=== PATIENT | male | born 1955 | race Caucasian/White ===

== ENCOUNTER → 2019-09-24 | Outpatient (REF) | payer OTHER ==
[~2019-09-24] MED LIST: ASAC800T3 PO; CELE40TA PO; IMOD2TAB16 PO; MESA50SU PR; MULT1TAB10 PO
[2019-09-24 11:43] LABS: HEMATOCRIT 44.4 % (42.0-52.0); HEMOGLOBIN 15.2 g/dl (13.5-17.5); MEAN CORPUSCULAR HGB CONC 34.2 g/dl (32.0-36.5); MEAN CORPUSCULAR VOLUME 93.5 fl (80.0-96.0); PLATELET COUNT, AUTOMATED 190 10^3/uL (150-450); RED BLOOD COUNT 4.75 10^6/uL (4.30-6.10); WHITE BLOOD COUNT 5.3 10^3/uL (4.0-10.0)
[2019-09-24 11:53] LABS: ALBUMIN 3.8 GM/DL (3.2-5.2); ALT/SGPT 39 U/L (12-78); BILIRUBIN,TOTAL 0.7 MG/DL (0.2-1.0); BLOOD UREA NITROGEN 19 MG/DL (7-18); CARBON DIOXIDE LEVEL 28 MEQ/L (21-32); CHLORIDE LEVEL 105 MEQ/L (98-107); CHOLESTEROL LEVEL 197 MG/DL (<200); CHOLESTEROL RISK RATIO 3.862 (<5); CREATININE FOR GFR 0.99 MG/DL (0.70-1.30); GLOMERULAR FILTRATION RATE > 60.0 (>49); GLUCOSE, FASTING 101 MG/DL (70-100); HDL CHOLESTEROL 51 MG/DL (>40); LDL CHOLESTEROL 133 MG/DL (<100); NON-HDL-C 146 MG/DL; POTASSIUM SERUM 4.3 MEQ/L (3.5-5.1); SODIUM LEVEL 139 MEQ/L (136-145); TOTAL PROTEIN 7.3 GM/DL (6.4-8.2); TRIGLYCERIDES LEVEL 67 MG/DL (<150)
[2019-09-24 11:57] LABS: TOTAL 25(OH) VITAMIN D 43.2 NG/ML (30.0-100.0)
== END ==
LOC: M SFHCPLAZ 09:43
PROVIDERS: ATTEND Nurse Practitioner Adult Health
DX: Z00.00 Encounter for general adult medical examination without abnormal findings (principal); Z12.5 Encounter for screening for malignant neoplasm of prostate; Z13.220 Encounter for screening for lipoid disorders; E55.9 Vitamin D deficiency, unspecified
CPT/HCPCS: 36415; 80053; 80061; 82306; 85027; G0103

== ENCOUNTER → 2020-09-24 | Outpatient (REF) | payer OTHER ==
[2020-09-24 10:24] LABS: HEMATOCRIT 46.1 % (42.0-52.0); HEMOGLOBIN 15.3 g/dl (13.5-17.5); MEAN CORPUSCULAR HEMOGLOBIN 31.1 pg (27.0-33.0); MEAN CORPUSCULAR HGB CONC 33.2 g/dl (32.0-36.5); MEAN CORPUSCULAR VOLUME 93.7 fl (80.0-96.0); PLATELET COUNT, AUTOMATED 173 10^3/uL (150-450); RED BLOOD COUNT 4.92 10^6/uL (4.30-6.10)
[2020-09-24 11:03] LABS: ALT/SGPT 44 U/L (12-78); BILIRUBIN,TOTAL 0.6 MG/DL (0.2-1.0); BLOOD UREA NITROGEN 21 MG/DL (7-18); CALCIUM LEVEL 9.4 MG/DL (8.8-10.2); CARBON DIOXIDE LEVEL 30 MEQ/L (21-32); CHLORIDE LEVEL 104 MEQ/L (98-107); CHOLESTEROL LEVEL 219 MG/DL (<200); CHOLESTEROL RISK RATIO 4.294 (<5); CREATININE FOR GFR 1.08 MG/DL (0.70-1.30); GLOMERULAR FILTRATION RATE > 60.0 (>49); GLUCOSE, FASTING 106 MG/DL (70-100); HDL CHOLESTEROL 51 MG/DL (>40); LDL CHOLESTEROL 154 MG/DL (<100); NON-HDL-C 168 MG/DL; POTASSIUM SERUM 4.4 MEQ/L (3.5-5.1); SODIUM LEVEL 138 MEQ/L (136-145); TOTAL PROTEIN 7.3 GM/DL (6.4-8.2); TRIGLYCERIDES LEVEL 71 MG/DL (<150)
[2020-09-24 11:05] LABS: TOTAL 25(OH) VITAMIN D 52.6 NG/ML (30.0-100.0)
== END ==
LOC: M SFHCPLAZ 08:25
PROVIDERS: ATTEND Nurse Practitioner Adult Health
DX: Z00.00 Encounter for general adult medical examination without abnormal findings (principal); Z13.220 Encounter for screening for lipoid disorders; Z12.5 Encounter for screening for malignant neoplasm of prostate; E55.9 Vitamin D deficiency, unspecified
CPT/HCPCS: 36415; 80053; 80061; 82306; 85027; G0103

== ENCOUNTER 2020-10-27 07:13 | Emergency (ER) | payer OTHER ==
[~2020-10-27] VITALS: Ht 167.6 cm; Wt 79.5 kg
[2020-10-27] MEDS ORDERED: ACET-897 PO (07:26)
[2020-10-27] MEDS ORDERED: APRI0.37 PO (07:26)
[2020-10-27] MEDS ORDERED: KETOROLAC 30 MG/ML 1ML VIAL IV ONE ×2 (07:45→10:45)
--- NOTE | 2020-10-27 08:25 | REP ---
INDICATION: right flank pain COMPARISON: 04/25/2012 TECHNIQUE: Axial noncontrast images from the lung bases to the pubic symphysis with coronal and sagittal reformations. This CT examination was performed using the following dose reduction techniques: Automated exposure control, adjustment of mA and/or kv according to the patient's size, and use of iterative reconstruction technique. FINDINGS: Early acute right-sided obstructive uropathy with perinephric and periureteral stranding and hydroureteronephrosis secondary to a 4 mm obstructing calculus in the mid right ureter (series 201; images 77-78). 2.4 cm stable right renal hypodensity compatible with cyst and 2 mm nonobstructing right renal calculus are also appreciated. Left kidney demonstrates multiple stable hypodensities suggesting cysts including 6.4 cm exophytic cyst. A new 1.2 cm hypodense lesion in the upper pole represents a change from 2012. Liver, spleen, pancreas, gallbladder, and bilateral adrenal glands are normal. The enteric system is without obstruction or acute inflammatory process. Evidence for prior appendectomy noted. Pelvis demonstrates normal bladder and mild prostatomegaly. No ascites. No free air. No adenopathy. Abdominal aorta without aneurysm. Musculoskeletal structures demonstrate degenerative changes without acute osseous abnormality. IMPRESSION: 1. Early acute right-sided obstructive uropathy with a 4 mm obstructing calculus in the mid right ureter. 2. Bilateral renal cysts and 2 mm nonobstructing right renal calculus noted. And similar to prior examination. Relatively new 12 mm complex hypodense lesion in the upper pole left kidney warrants ultrasound evaluation to evaluate between complex cyst and/or solid lesion. <Electronically signed by Chaz Orellana > 10/27/20 [id number]
--- NOTE | 2020-10-27 10:17 | REP ---
INDICATION: new 12mm hypodense lesion in left kidney r/o solid mass COMPARISON: None TECHNIQUE: Real time tilley scale ultrasound examination using curved array transducer. FINDINGS: Right kidney measures 10.5 x 5.0 x 6.2 cm and includes mild hydronephrosis along with 1.3 x 1.7 x 2.0 cm exophytic simple cyst and 6 mm nonobstructing intrarenal calculus. Left kidney measures 10.9 x 3.5 x 5.7 cm without hydronephrosis or nephrolithiasis and includes 1.2 x 1.1 x 0.7 cm upper pole simple cyst and 6.6 x 5.2 x 4.4 cm simple exophytic lower pole cyst. Bladder is collapsed. IMPRESSION: 1. Bilateral renal cysts as described above appear benign 2. Right kidney demonstrates mild hydronephrosis and 6 mm nonobstructing intrarenal calculus. <Electronically signed by Chaz Orellana > 10/27/20 [id number]
[2020-10-27] MEDS ORDERED: NORC1TAB7 PO (11:36)
[2020-10-27] MEDS ORDERED: FLOM0.4C39 PO (11:36)
[2020-10-27] MEDS ORDERED: ONDA4TAB6 PO (11:36)
[2020-10-27 11:46] VITALS: BP 130/84
== END 2020-10-27 11:52 | disposition home or self-care (01) ==
LOC: M ED 07:13
DX: N20.1 Calculus of ureter (principal); N28.1 Cyst of kidney, acquired; Z87.442 Personal history of urinary calculi
CPT/HCPCS: 74176; 76775; 80047; 81001; 96374; 96376; 99284; J1885

== ENCOUNTER → 2021-03-18 | Outpatient (CLI) | payer OTHER ==
[~2021-03-18] MED LIST changes: +ACET-897 PO; +APRI0.37 PO; +FLOM0.4C39 PO; +NORC1TAB7 PO; +ONDA4TAB6 PO; +VITMTA PO
== END ==
LOC: M LABSMTC 14:13
PROVIDERS: ATTEND Anesthesiology
DX: Z01.812 Encounter for preprocedural laboratory examination (principal); Z20.828 Contact with and (suspected) exposure to other viral communicable diseases

== ENCOUNTER 2021-03-23 09:08 | Day surgery (SDC) | payer OTHER ==
[~2021-03-23] VITALS: Ht 167.6 cm; Wt 78.5 kg
[~2021-03-23 09:08] MED LIST changes: +NS 1,000 ML IV ONE
--- NOTE | 2021-03-23 11:08 | ROOR ---
Patient Name: Lucas Nick Procedure Date: 03/23/2021 10:49 AM Date of : 1955 Age: 65 Room: [facility] Gender: Male Note Status: Finalized Procedure: Total Colonoscopy to cecum + Bx. Indications: For therapy of left-sided chronic ulcerative colitis, Disease activity assessment of left-sided chronic ulcerative colitis Providers: Eric Garibay MD Referring MD: Holly Angel NP Requesting Provider: Medicines: Monitored Anesthesia Care Complications: No immediate complications. Procedure: Pre-Anesthesia Assessment: - The heart rate, respiratory rate, oxygen saturations, blood pressure, adequacy of pulmonary ventilation, and response to care were monitored throughout the procedure. The Colonoscope was introduced through the anus and advanced to the cecum, identified by appendiceal orifice and ileocecal valve. The colonoscopy was performed without difficulty. The patient tolerated the procedure well. The quality of the bowel preparation was excellent. Findings: The perianal and digital rectal examinations were normal. Non-bleeding internal hemorrhoids were found during retroflexion. The hemorrhoids were small and Grade I (internal hemorrhoids that do not prolapse). No other significant abnormalities were identified in a careful examination of the remainder of the colon. Background biopsies were taken for histology with a cold forceps from the rectosigmoid colon. These biopsy specimens were sent to Pathology. The exam was otherwise without abnormality on direct and retroflexion views. Impression: - Non-bleeding internal hemorrhoids. - The examination was otherwise normal on direct and retroflexion views. - Background biopsies were taken from the rectosigmoid colon. - No additional abnormalities were found on retroflexion. - The exam was otherwise normal to the cecum. Recommendation: - Patient has a contact number available for emergencies. The signs and symptoms of potential delayed complications were discussed with the patient. Return to normal activities tomorrow. Written discharge instructions were provided to the patient. - High fiber diet. - Discharge patient to home. - Continue present medications. - Await pathology results. - Telephone GI clinic for pathology results in 1 week. - Repeat colonoscopy in 5 years for surveillance. - Return to referring physician. - The findings and recommendations were discussed with the patient's family. Procedure Code(s): --- Professional --- 16164, Colonoscopy, flexible; with biopsy, single or multiple Diagnosis Code(s): --- Professional --- K64.0, First degree hemorrhoids K51.50, Left sided colitis without complications CPT copyright 2019 [employer]. All rights reserved. The codes documented in this report are preliminary and upon digital business analyst review may be revised to meet current compliance requirements. Eric Garibay MD Eric Garibay MD 03/23/2021 11:07:40 AM Electronically signed by Eric Garibay MD Number of Addenda: 0 Note Initiated On: 03/23/2021 10:49 AM Estimated Blood Loss: Estimated blood loss: none.
[2021-03-23] MEDS ORDERED: LIDOCAINE 2% 100MG/5ML SDV (FOR ANES.) As Ordered ONE (11:13)
[2021-03-23] MEDS ORDERED: propofoL 200 MG/20 ML VIAL As Ordered ONE (11:13)
[2021-03-23 11:23] VITALS: BP 135/83
== END 2021-03-23 11:25 | disposition home or self-care (01) ==
LOC: M OPP 09:08
PROVIDERS: ATTEND Internal Medicine Gastroenterology
DX: K51.50 Left sided colitis without complications (principal); K64.0 First degree hemorrhoids

== ENCOUNTER → 2021-09-28 | Outpatient (CLI) | payer OTHER ==
[~2021-09-28] MED LIST changes: -NS 1,000 ML IV ONE
[2021-09-28 10:54] LABS: HEMATOCRIT 44.2 % (42.0-52.0); HEMOGLOBIN 14.8 g/dl (13.5-17.5); MEAN CORPUSCULAR HEMOGLOBIN 31.4 pg (27.0-33.0); MEAN CORPUSCULAR HGB CONC 33.5 g/dl (32.0-36.5); MEAN CORPUSCULAR VOLUME 93.8 fl (80.0-96.0); PLATELET COUNT, AUTOMATED 185 10^3/uL (150-450); RED BLOOD COUNT 4.71 10^6/uL (4.30-6.10); WHITE BLOOD COUNT 5.4 10^3/uL (4.0-10.0)
[2021-09-28 11:32] LABS: ALT/SGPT 42 U/L (12-78); BILIRUBIN,TOTAL 0.5 MG/DL (0.2-1.0); BLOOD UREA NITROGEN 18 MG/DL (7-18); CALCIUM LEVEL 9.3 MG/DL (8.8-10.2); CARBON DIOXIDE LEVEL 29 MEQ/L (21-32); CHLORIDE LEVEL 105 MEQ/L (98-107); CHOLESTEROL LEVEL 203 MG/DL (<200); CREATININE FOR GFR 0.92 MG/DL (0.70-1.30); GLOMERULAR FILTRATION RATE > 60.0 (>49); GLUCOSE, FASTING 92 MG/DL (70-100); HDL CHOLESTEROL 56 MG/DL (>40); POTASSIUM SERUM 4.2 MEQ/L (3.5-5.1); SODIUM LEVEL 140 MEQ/L (136-145); TRIGLYCERIDES LEVEL 74 MG/DL (<150)
[2021-09-28 11:33] LABS: CHOLESTEROL RISK RATIO 3.625 (<5); LDL CHOLESTEROL 132 MG/DL (<100); NON-HDL-C 147 MG/DL; TOTAL PROTEIN 7.5 GM/DL (6.4-8.2)
[2021-09-28 11:35] LABS: TOTAL 25(OH) VITAMIN D 56.5 NG/ML (30.0-100.0)
[2021-09-29 20:07] LABS: TESTOSTERONE FREE (DIRECT) 8.1 pg/mL (6.6-18.1)
== END ==
LOC: M PLALAB 09:00
PROVIDERS: ATTEND Nurse Practitioner Adult Health
DX: Z00.00 Encounter for general adult medical examination without abnormal findings (principal); E55.9 Vitamin D deficiency, unspecified; Z12.5 Encounter for screening for malignant neoplasm of prostate; N52.9 Male erectile dysfunction, unspecified
CPT/HCPCS: 36415; 80053; 80061; 82306; 84402; 84403; 85027; G0103

== ENCOUNTER → 2021-10-29 | Outpatient (REF) | payer OTHER | LOC: M SFHCPLAZ 16:49 | PROVIDERS: ATTEND Physician Assistant | DX: R35.0 Frequency of micturition (principal) ==

== ENCOUNTER 2022-07-29 16:56 | Inpatient (IN) | payer OTHER ==
[~2022-07-29] VITALS: Ht 167.6 cm; Wt 78.7 kg
[2022-07-29 18:35] LABS: BASO % 0.4 % (0.0-1.0); EOS # 0.1 10^3/uL (0.0-0.5); EOS % 0.7 % (0.0-3.0); HEMOGLOBIN 14.5 g/dl (13.5-17.5); LYMPH # 1.1 10^3/uL (1.5-5.0); MEAN CORPUSCULAR HEMOGLOBIN 31.8 pg (27.0-33.0); MEAN CORPUSCULAR HGB CONC 33.7 g/dl (32.0-36.5); MEAN CORPUSCULAR VOLUME 94.3 fl (80.0-96.0); MONO # 0.6 10^3/uL (0.0-0.8); MONO % 5.6 % (2.0-8.0); NEUTROPHILS # 9.4 10^3/uL (1.5-8.5); NEUTROPHILS % 82.9 % (36.0-66.0); PLATELET COUNT, AUTOMATED 197 10^3/uL (150-450); RED BLOOD COUNT 4.56 10^6/uL (4.30-6.10); WHITE BLOOD COUNT 11.4 10^3/uL (4.0-10.0)
[2022-07-29 18:57] LABS: ALBUMIN 4.2 GM/DL (3.2-5.2); BILIRUBIN,DIRECT 0.1 MG/DL (0.0-0.2); BILIRUBIN,TOTAL 0.4 MG/DL (0.2-1.0); CALCIUM LEVEL 9.6 MG/DL (8.8-10.2); CREATININE FOR GFR 1.45 MG/DL (0.70-1.30); GLOMERULAR FILTRATION RATE 52.2 (>49); POTASSIUM SERUM 4.3 MEQ/L (3.5-5.1); TOTAL PROTEIN 7.4 GM/DL (6.4-8.2)
[2022-07-29] MEDS ORDERED: NS 1,000 ML IV ONE (20:05)
[2022-07-29] MEDS ORDERED: MORPHINE 4 MG/ML 1ML VIAL/SYRINGE IV ONE ×2 (20:05→21:45)
[2022-07-29] MEDS ORDERED: ONDANSETRON 4MG 2ML VIAL IV ONE (20:05)
[2022-07-29 22:32] LABS: RSV AMPLIFICATION NEGATIVE (NEGATIVE)
[2022-07-29] MEDS ORDERED: IBUP-1720 PO (23:37)
[2022-07-29] MEDS ORDERED: APRI0.37 PO (23:37)
[2022-07-29] MEDS ORDERED: D 50CAP2 PO (23:37)
[2022-07-29] MEDS ORDERED: HOME MED LIST COMPLETE! XX SCH (23:40)
[2022-07-29] MEDS: TAMSULOSIN 0.4 MG CAP PO SCH (23:51)
[2022-07-29] MEDS: NS 1,000 ML IV SCH (23:52)
[2022-07-30] MEDS: HYDROMORPHONE HCL 0.5 MG/ 0.5 ML SYRINGE (J1170 PER 1) IV PRN ×5 (01:52→16:54)
[2022-07-30 08:36] LABS: BASO % 0.3 % (0.0-1.0); EOS # 0.2 10^3/uL (0.0-0.5); EOS % 1.7 % (0.0-3.0); HEMATOCRIT 39.9 % (42.0-52.0); LYMPH # 1.3 10^3/uL (1.5-5.0); LYMPH % 15.5 % (24.0-44.0); MEAN CORPUSCULAR HEMOGLOBIN 31.5 pg (27.0-33.0); MEAN CORPUSCULAR HGB CONC 32.6 g/dl (32.0-36.5); MEAN CORPUSCULAR VOLUME 96.6 fl (80.0-96.0); MONO # 0.8 10^3/uL (0.0-0.8); NEUTROPHILS # 6.3 10^3/uL (1.5-8.5); NEUTROPHILS % 73.3 % (36.0-66.0); PLATELET COUNT, AUTOMATED 168 10^3/uL (150-450); RED BLOOD COUNT 4.13 10^6/uL (4.30-6.10); WHITE BLOOD COUNT 8.6 10^3/uL (4.0-10.0)
[2022-07-30 09:06] LABS: BLOOD UREA NITROGEN 20 MG/DL (7-18); CALCIUM LEVEL 8.7 MG/DL (8.8-10.2); CARBON DIOXIDE LEVEL 25 MEQ/L (21-32); CHLORIDE LEVEL 110 MEQ/L (98-107); CREATININE FOR GFR 1.15 MG/DL (0.70-1.30); GLOMERULAR FILTRATION RATE > 60.0 (>49); GLUCOSE, FASTING 90 MG/DL (70-100); SODIUM LEVEL 142 MEQ/L (136-145)
[2022-07-30] MEDS: TAMSULOSIN 0.4 MG CAP PO SCH (09:45)
[2022-07-30] MEDS: NS 1,000 ML IV SCH ×2 (09:47→12:28)
[2022-07-30] MEDS ORDERED: propofoL 200 MG/20 ML VIAL As Ordered ONE (16:52)
[2022-07-30] MEDS ORDERED: fentaNYL 100 MCG/2 ML INJECTION As Ordered ONE (16:52)
[2022-07-30] MEDS ORDERED: LIDOCAINE 2% 100MG/5ML SDV (FOR ANES.) As Ordered ONE (16:52)
[2022-07-30] MEDS ORDERED: MIDAZOLAM INJ 2MG/2ML VIAL (J2250 PER 1MG) As Ordered ONE (16:52)
[2022-07-30] MEDS ORDERED: ONDANSETRON 4MG 2ML VIAL As Ordered ONE (16:53)
[2022-07-30] MEDS ORDERED: dexameTHASONE 4 MG/ML 1ML VIAL (J1100 PER 1MG) As Ordered ONE (16:53)
[2022-07-30] MEDS ORDERED: PERCOCET PO (17:21)
[2022-07-30] MEDS ORDERED: ISOVUE-300 61% 50ML VIAL As Ordered ONE (17:38)
[2022-07-30] MEDS ORDERED: ceFAZolin 2 GM/D5W 50 ML IV BAG (J0690 PER 500MG) As Ordered ONE (17:57)
[2022-07-30] MEDS ORDERED: ACETAMINOPHEN 1000MG 100ML IV BTL (OFIRMEV) (J0131 PER 10MG) As Ordered ONE (17:58)
[2022-07-30] MEDS ORDERED: LIDOCAINE 2% 5ML JELLY UROJET As Ordered ONE (18:34)
[2022-07-30] MEDS: MEPERIDINE INJ 25 MG/ML VIAL (J2175) IV PRN ×2 (19:09→19:15)
[2022-07-30] MEDS ORDERED: LR 1,000 ML IV SCH (19:15)
[2022-07-30] MEDS ORDERED: fentaNYL 100 MCG/2 ML INJECTION IV PRN (19:15)
[2022-07-30] MEDS ORDERED: ONDANSETRON 4MG 2ML VIAL IV PRN (19:15)
[2022-07-30] MEDS ORDERED: oxyCODONE 5MG TAB PO PRN (19:15)
[2022-07-30 19:35] VITALS: BP 121/64
== END 2022-07-30 19:59 | disposition home or self-care (01) | DRG 465 ==
LOC: M ED 16:56 → M ED INP 22:57 → ENRESERV 07-30 14:03
PROVIDERS: ADMIT Internal Medicine; ATTEND Internal Medicine
PROC: 0T778DZ Dilation of Left Ureter with Intraluminal Device, Via Natural or Artificial Opening Endoscopic (ICD-10-PCS; 2022-07-30)
PROC: 0TF78ZZ Fragmentation in Left Ureter, Via Natural or Artificial Opening Endoscopic (ICD-10-PCS; principal; 2022-07-30 16:00)
DX: N13.2 Hydronephrosis with renal and ureteral calculous obstruction (principal); N28.1 Cyst of kidney, acquired; K51.90 Ulcerative colitis, unspecified, without complications; Z20.822 Contact with and (suspected) exposure to COVID-19; Z79.899 Other long term (current) drug therapy; N40.0 Benign prostatic hyperplasia without lower urinary tract symptoms; N17.9 Acute kidney failure, unspecified

== ENCOUNTER → 2022-09-03 | Outpatient (REF) | payer OTHER ==
[~2022-09-03] MED LIST changes: +D 50CAP2 PO; +IBUP-1720 PO; +PERCOCET PO
[2022-09-03 13:44] LABS: APPEARANCE, URINE MANUAL CLEAR (CLEAR)
[2022-09-03 13:45] LABS: BILIRUBIN, URINE MANUAL NEGATIVE (NEGATIVE); BLOOD URINE MANUAL NEGATIVE (NEGATIVE); COLOR, URINE MANUAL LT YELLOW (YELLOW); GLUCOSE, URINE (UA) MANUAL NEGATIVE (NEGATIVE); KETONE, URINE MANUAL NEGATIVE (NEGATIVE); LEUKOCYTE ESTERASE, URINE MAN NEGATIVE (NEGATIVE); NITRITE, URINE MANUAL NEGATIVE (NEGATIVE); PROTEIN, URINE MANUAL NEGATIVE (NEGATIVE); SPECIFIC GRAVITY,URINE MANUAL 1.002 (1.002-1.035); UROBILINOGEN, URINE MANUAL NORMAL (NORMAL)
== END ==
LOC: M SMT 13:21
PROVIDERS: ATTEND Nurse Practitioner Women's Health
DX: R30.0 Dysuria (principal)

== ENCOUNTER → 2022-09-29 | Outpatient (CLI) | payer OTHER ==
[2022-09-29 11:56] LABS: ALBUMIN 4.2 G/DL (3.2-5.2); ALKALINE PHOSPHATASE 56 U/L (46-116); ALT/SGPT 40 U/L (7.0-40); AST/SGOT 26 U/L (<34); BILIRUBIN,TOTAL 0.6 MG/DL (0.3-1.2); BLOOD UREA NITROGEN 21 MG/DL (9-23); CALCIUM LEVEL 9.1 MG/DL (8.3-10.6); CARBON DIOXIDE LEVEL 29 MMOL/L (20-31); CHLORIDE LEVEL 103 MMOL/L (98-107); CHOLESTEROL LEVEL 179 MG/DL (<200); CHOLESTEROL RISK RATIO 3.52 (<5); CREATININE FOR GFR 1.04 MG/DL (0.70-1.30); GLOMERULAR FILTRATION RATE > 60.0 (>49); GLUCOSE, FASTING 104 MG/DL (74-106); HDL CHOLESTEROL 50.8 MG/DL (>40); LDL CHOLESTEROL 115.2 MG/DL (<100); NON-HDL-C 128 MG/DL; POTASSIUM SERUM 4.3 MMOL/L (3.5-5.1); SODIUM LEVEL 138 MMOL/L (136-145); TOTAL PROTEIN 7.1 G/DL (5.7-8.2); TRIGLYCERIDES LEVEL 65 MG/DL (<150)
== END ==
LOC: M PLALAB 08:24
PROVIDERS: ATTEND Nurse Practitioner Adult Health
DX: Z00.00 Encounter for general adult medical examination without abnormal findings (principal); Z12.5 Encounter for screening for malignant neoplasm of prostate; Z13.220 Encounter for screening for lipoid disorders
CPT/HCPCS: 36415; 80053; 80061; G0103

== ENCOUNTER → 2023-02-18 | Outpatient (REF) | payer OTHER | LOC: M SFHCDERM 14:13 | PROVIDERS: ATTEND Physician Assistant | DX: D49.2 Neoplasm of unspecified behavior of bone, soft tissue, and skin (principal) ==

== ENCOUNTER 2023-08-20 02:57 | Emergency (ER) | payer MEDICARE, OTHER ==
[~2023-08-20] VITALS: Ht 167.6 cm; Wt 81.0 kg
[2023-08-20] MEDS ORDERED: MORPHINE 4 MG/ML 1ML VIAL IV ONE (03:15)
[2023-08-20] MEDS ORDERED: ONDANSETRON 4MG 2ML VIAL IV ONE (03:15)
[2023-08-20] MEDS ORDERED: NS 500 ML IV ONE (03:15)
[2023-08-20 03:44] LABS: BASO % 0.4 % (0.0-1.0); EOS # 0.2 10^3/uL (0.0-0.5); EOS % 1.8 % (0.0-3.0); HEMATOCRIT 43.9 % (42.0-52.0); HEMOGLOBIN 15.5 g/dl (13.5-17.5); LYMPH # 1.8 10^3/uL (1.5-5.0); LYMPH % 17.1 % (24.0-44.0); MEAN CORPUSCULAR HEMOGLOBIN 32.6 pg (27.0-33.0); MEAN CORPUSCULAR HGB CONC 35.3 g/dl (32.0-36.5); MEAN CORPUSCULAR VOLUME 92.2 fl (80.0-96.0); MONO # 0.9 10^3/uL (0.0-0.8); MONO % 8.4 % (2.0-8.0); NEUTROPHILS # 7.6 10^3/uL (1.5-8.5); PLATELET COUNT, AUTOMATED 221 10^3/uL (150-450); RED BLOOD COUNT 4.76 10^6/uL (4.30-6.10); WHITE BLOOD COUNT 10.5 10^3/uL (4.0-10.0)
[2023-08-20] MEDS ORDERED: KETOROLAC 30 MG/ML 1ML VIAL IV ONE (04:05)
[2023-08-20] MEDS ORDERED: PERCOCET 5MG/325MG TAB PO ONE (07:25)
[2023-08-20] MEDS ORDERED: FLOM0.4C39 PO (08:02)
[2023-08-20] MEDS ORDERED: PERC5TAB12 PO (08:03)
[2023-08-20] MEDS ORDERED: IBUP-1022 PO (08:03)
[2023-08-20] MEDS ORDERED: ONDA4TAB6 PO (08:04)
[2023-08-20 08:15] VITALS: BP 142/64; TEMP 96.9; O2SAT 98
[2023-08-21 10:27] LABS: ALKALINE PHOSPHATASE 70 U/L (40-129); ALT/SGPT 24 U/L (1-41); AST/SGOT 27 U/L (5-40); BLOOD UREA NITROGEN 31 MG/DL (7-21); CALCIUM LEVEL 9.7 MG/DL (8.8-10.2); CARBON DIOXIDE LEVEL 24 MEQ/L (22-30); CHLORIDE LEVEL 100 MEQ/L (98-107); CREATININE FOR GFR 1.3 MG/DL (0.7-1.5); GLUCOSE, FASTING 123 MG/DL; POTASSIUM SERUM 4.3 MEQ/L (3.6-5.0); SODIUM LEVEL 137 MEQ/L (134-153)
[2023-08-21 10:28] LABS: ALBUMIN 4.7 G/DL (3.9-5.0); BILIRUBIN,DIRECT < 0.2 MG/DL (0.1-0.4); BILIRUBIN,TOTAL < 0.7 MG/DL (0.2-1.3); LIPASE 37 U/L (13-60); TOTAL PROTEIN 7.4 G/DL (6.3-8.2)
== END 2023-08-20 08:42 | disposition home or self-care (01) ==
LOC: M ED 02:57
DX: N20.0 Calculus of kidney (principal); N13.30 Unspecified hydronephrosis; N28.1 Cyst of kidney, acquired; K51.90 Ulcerative colitis, unspecified, without complications; K57.30 Diverticulosis of large intestine without perforation or abscess without bleeding; Z87.442 Personal history of urinary calculi; Z79.1 Long term (current) use of non-steroidal anti-inflammatories (NSAID); Z79.83 Long term (current) use of bisphosphonates; Z79.810 Long term (current) use of selective estrogen receptor modulators (SERMs); Z79.899 Other long term (current) drug therapy
CPT/HCPCS: 74176; 80047; 80048; 80076; 81001; 83690; 85025; 93041; 96374; 96375; 99285; J1885; J2405

== ENCOUNTER → 2023-09-12 | Outpatient (CLI) | payer MEDICARE ==
[~2023-09-12] MED LIST changes: +IBUP-1022 PO; +PERC5TAB12 PO
== END ==
LOC: M RAD 11:19
PROVIDERS: ATTEND Nurse Practitioner Family
DX: N20.1 Calculus of ureter (principal); N28.1 Cyst of kidney, acquired

== ENCOUNTER → 2023-10-03 | Outpatient (CLI) | payer MEDICARE ==
[2023-10-03 14:15] LABS: HEMATOCRIT 46.2 % (42.0-52.0); HEMOGLOBIN 15.7 g/dl (13.5-17.5); MEAN CORPUSCULAR HEMOGLOBIN 31.9 pg (27.0-33.0); MEAN CORPUSCULAR VOLUME 93.9 fl (80.0-96.0); PLATELET COUNT, AUTOMATED 198 10^3/uL (150-450); RED BLOOD COUNT 4.92 10^6/uL (4.30-6.10); WHITE BLOOD COUNT 5.9 10^3/uL (4.0-10.0)
[2023-10-03 16:34] LABS: ALBUMIN 4.2 G/DL (3.2-5.2); ALKALINE PHOSPHATASE 47 U/L (46-116); ALT/SGPT 31 U/L (7.0-40); AST/SGOT 18 U/L (<34); BILIRUBIN,TOTAL 0.5 MG/DL (0.3-1.2); BLOOD UREA NITROGEN 19 MG/DL (9-23); CALCIUM LEVEL 9.4 MG/DL (8.3-10.6); CARBON DIOXIDE LEVEL 29 MMOL/L (20-31); CHLORIDE LEVEL 102 MMOL/L (98-107); CHOLESTEROL LEVEL 184 MG/DL (<200); CHOLESTEROL RISK RATIO 3.85 (<5); CREATININE FOR GFR 1.03 MG/DL (0.70-1.30); GLOMERULAR FILTRATION RATE > 60.0 (>49); GLUCOSE, FASTING 93 MG/DL (74-106); HDL CHOLESTEROL 47.7 MG/DL (>40); LDL CHOLESTEROL 123.9 MG/DL (<100); NON-HDL-C 136.3 MG/DL; POTASSIUM SERUM 4.5 MMOL/L (3.5-5.1); SODIUM LEVEL 138 MMOL/L (136-145); TOTAL 25(OH) VITAMIN D 61.1 NG/ML (20.0-100.0); TOTAL PROTEIN 7.2 G/DL (5.7-8.2); TRIGLYCERIDES LEVEL 62 MG/DL (<150)
== END ==
LOC: M PLALAB 09:29
PROVIDERS: ATTEND Nurse Practitioner Adult Health
DX: Z00.00 Encounter for general adult medical examination without abnormal findings (principal); E55.9 Vitamin D deficiency, unspecified; Z12.5 Encounter for screening for malignant neoplasm of prostate; Z13.220 Encounter for screening for lipoid disorders; Z79.899 Other long term (current) drug therapy
CPT/HCPCS: 36415; 80053; 80061; 82306; 85027; G0103

== ENCOUNTER → 2023-10-28 | Outpatient (REF) | payer MEDICARE ==
[2023-10-28 17:25] LABS: APPEARANCE, URINE CLEAR (CLEAR); BACTERIA, URINE AUTO NEGATIVE (NEGATIVE); BILIRUBIN, URINE AUTO NEGATIVE (NEGATIVE); BLOOD, URINE BLOOD NEGATIVE (NEGATIVE); COLOR, URINE YELLOW (YELLOW); GLUCOSE, URINE (UA) AUTO NEGATIVE (NEGATIVE); KETONE, URINE AUTO NEGATIVE (NEGATIVE); LEUKOCYTE ESTERASE, URINE AUTO NEGATIVE (NEGATIVE); MUCUS, URINE SMALL (NEGATIVE); NITRITE, URINE AUTO NEGATIVE (NEGATIVE); PROTEIN, URINE AUTO NEGATIVE (NEGATIVE); RBC, URINE AUTO 3 /HPF (0-3); SPECIFIC GRAVITY URINE AUTO 1.013 (1.002-1.035); SQUAMOUS EPITHELIAL CELL UR AU 0 /HPF (0-6); UROBILINOGEN, URINE AUTO 0.2 mg/dL (0.0-2.0); WBC, URINE AUTO 6 /HPF (0-3)
== END ==
LOC: M SMT 16:55
PROVIDERS: ATTEND Nurse Practitioner Family
DX: R30.0 Dysuria (principal)

== ENCOUNTER → 2024-02-25 | Outpatient (CLI) | payer MEDICARE | LOC: M RAD 08:20 | PROVIDERS: ATTEND Nurse Practitioner Family | DX: N20.0 Calculus of kidney (principal) ==

== ENCOUNTER → 2024-10-02 | Outpatient (CLI) | payer MEDICARE ==
[~2024-10-02] MED LIST changes: +ONDA-282 PO; -ONDA4TAB6 PO
[2024-10-02 10:56] LABS: HEMATOCRIT 44.8 % (42.0-52.0); HEMOGLOBIN 15.1 g/dl (13.5-17.5); MEAN CORPUSCULAR HEMOGLOBIN 32.1 pg (27.0-33.0); MEAN CORPUSCULAR HGB CONC 33.7 g/dl (32.0-36.5); MEAN CORPUSCULAR VOLUME 95.3 fl (80.0-96.0); PLATELET COUNT, AUTOMATED 208 10^3/uL (150-450); WHITE BLOOD COUNT 6.3 10^3/uL (4.0-10.0)
[2024-10-02 11:11] LABS: PSA SCREENING 3.03 NG/ML (< 4.00)
[2024-10-02 11:14] LABS: ALBUMIN 4.1 G/DL (3.2-5.2); ALKALINE PHOSPHATASE 57 U/L (40-129); ALT/SGPT 28 U/L (7.0-40); AST/SGOT 15 U/L (<34); BILIRUBIN,TOTAL 0.7 MG/DL (0.3-1.2); BLOOD UREA NITROGEN 18 MG/DL (9-23); CALCIUM LEVEL 9.9 MG/DL (8.3-10.6); CARBON DIOXIDE LEVEL 29 MMOL/L (20-31); CHLORIDE LEVEL 105 MMOL/L (98-107); CHOLESTEROL LEVEL 202 MG/DL (<200); CHOLESTEROL RISK RATIO 4.19 (<5); CREATININE FOR GFR 1.12 MG/DL (0.70-1.30); GLOMERULAR FILTRATION RATE > 60.0 (>49); GLUCOSE, FASTING 92 MG/DL (74-106); HDL CHOLESTEROL 48.2 MG/DL (>40); NON-HDL-C 153.8 MG/DL; POTASSIUM SERUM 4.8 MMOL/L (3.5-5.1); SODIUM LEVEL 140 MMOL/L (136-145); TOTAL PROTEIN 7.3 G/DL (5.7-8.2); TRIGLYCERIDES LEVEL 94 MG/DL (<150)
[2024-10-02 11:15] LABS: TOTAL 25(OH) VITAMIN D 60.6 NG/ML (20.0-100.0)
== END ==
LOC: M PLALAB 08:44
PROVIDERS: ATTEND Nurse Practitioner Adult Health
DX: Z00.00 Encounter for general adult medical examination without abnormal findings (principal); Z13.220 Encounter for screening for lipoid disorders; Z12.5 Encounter for screening for malignant neoplasm of prostate; E55.9 Vitamin D deficiency, unspecified; Z79.899 Other long term (current) drug therapy
CPT/HCPCS: 36415; 80053; 80061; 82306; 85027; G0103

== ENCOUNTER → 2024-10-05 | Outpatient (CLI) | payer MEDICARE | LOC: M PLAIMG 08:59 | PROVIDERS: ATTEND Nurse Practitioner Family | DX: N21.9 Calculus of lower urinary tract, unspecified (principal); K59.00 Constipation, unspecified; Z87.442 Personal history of urinary calculi ==